=== PATIENT | female | born 2000 | race African-American/Black ===

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

== ENCOUNTER 2020-12-10 09:38 | Inpatient (IN) | payer OTHER ==
[~2020-12-10] VITALS: Ht 168.9 cm; Wt 68.0 kg
[2020-12-10] MEDS ORDERED: SODIUM CHLORIDE 0.9% 1,000 ML IV ONE (10:00)
[2020-12-10 11:53] LABS: BASOPHILS % 0.3 % (0.0-2.0); EOSINOPHILS % 0.1 % (0.0-5.0); HEMATOCRIT. 43.3 % (36.0-48.0); HEMOGLOBIN. 14.6 g/dL (12.0-16.0); LYMPHOCYTES % 20.6 % (20.0-50.0); MEAN CORPUSCULAR HEMOGLOBIN 30.3 pg (28.0-32.0); MEAN CORPUSCULAR VOLUME 90.3 fL (81.0-99.0); MEAN PLATELET VOLUME 7.6 fl (7.4-10.4); MONOCYTES % 4.3 % (2.0-8.0); NEUTROPHILS % 74.7 % (40.0-76.0); PLATELET 304 x1000/uL (130-400); RED CELL DISTRIBUTION WIDTH 12.8 % (11.6-14.6)
[2020-12-10 11:56] LABS: CHLORIDE 107 mEq/L (98-107)
[2020-12-10] MEDS ORDERED: LORAZEPAM 2MG/ML CPJ IV ONE ×3 (12:00→14:15)
[2020-12-10 12:01] LABS: ETHANOL BLOOD < 10 mg/dL
[2020-12-10 12:05] LABS: HCG SCREEN NEGATIVE
[2020-12-10 13:47] LABS: OPIATES URINE SCREEN NEGATIVE (NEGATIVE); PHENCYCLIDINE URINE SCREEN NEGATIVE (NEGATIVE)
[2020-12-10 13:48] LABS: *AMPHETAMINES SCREEN URINE NEGATIVE (NEGATIVE); *BARBITURATES SCREEN URINE NEGATIVE (NEGATIVE); CANNABINOID URINE SCREEN NEGATIVE (NEGATIVE)
[2020-12-10 13:50] LABS: *BENZODIAZEPINES SCREEN URINE NEGATIVE (NEGATIVE); *COCAINE SCREEN URINE NEGATIVE (NEGATIVE); METHADONE URINE SCREEN NEGATIVE (NEGATIVE)
[2020-12-10] MEDS ORDERED: OLANZAPINE 5MG TABLET ODT PO ONE (15:45)
[2020-12-10] MEDS ORDERED: OLANZAPINE 5MG TABLET ODT PO NR (16:00)
[2020-12-10] MEDS ORDERED: LABE200T9 PO (16:02)
[2020-12-10] MEDS ORDERED: ATOR10TA69 PO (16:02)
[2020-12-10] MEDS ORDERED: OMEP40CA12 PO (16:02)
[2020-12-10] MEDS ORDERED: ASPI-1497 PO (16:02)
[2020-12-10] MEDS ORDERED: PROPRANOLOL HCL 10MG TABLET PO SCH (18:00)
[2020-12-10 18:04] LABS: T4 FREE 1.17 ng/dL (0.76-1.46)
[2020-12-10 23:30] VITALS: BP 139/85
[2020-12-11] MEDS ORDERED: MONT10TA21 PO (00:33)
[2020-12-11] MEDS ORDERED: DIPH25CA83 PO (00:33)
[2020-12-11] MEDS ORDERED: LEVO5TAB29 PO (00:33)
[2020-12-11] MEDS ORDERED: TRIA10.82 NS (00:33)
[2020-12-11 00:37] VITALS: BP 139/85
[2020-12-11] MEDS ORDERED: DIPHENHYDRAMINE 25MG CAPSULE PO PRN (01:00)
[2020-12-11] MEDS ORDERED: LORAZEPAM 1MG TABLET PO PRN (01:00)
[2020-12-11 04:00] VITALS: BP 114/75
[2020-12-11 04:53] LABS: CHLORIDE 109 mEq/L (98-107)
[2020-12-11 06:15] LABS: HEMATOCRIT 41.8 % (36.0-48.0); HEMOGLOBIN 14.1 g/dL (12.0-16.0); MEAN CORPUSCULAR HEMOGLOBIN 30.5 pg (28.0-32.0); MEAN CORPUSCULAR VOLUME 90.7 fL (81.0-99.0); PLATELET 298 x1000/uL (130-400); RED BLOOD CELL COUNT 4.61 mill/uL (4.2-5.4)
[2020-12-11 08:00] VITALS: BP 119/74
[2020-12-11] MEDS ORDERED: ASPIRIN 81MG TABLET PO SCH (09:00)
[2020-12-11] MEDS ORDERED: METOPROLOL TARTRATE 50MG TABLET PO SCH (09:00)
[2020-12-11] MEDS ORDERED: NON FORMULARY PATIENT HOME MED XX SCH (09:00)
[2020-12-11] MEDS ORDERED: FLUTICASONE PROPIONATE 50MCG/SPRAY BOTTLE BOTHNSTRLS SCH (09:00)
[2020-12-11 12:00] VITALS: BP 117/64
[2020-12-11 16:00] VITALS: BP 124/66
[2020-12-11 16:59] VITALS: BP 124/66
[2020-12-11] MEDS ORDERED: MONTELUKAST SODIUM 10MG TABLET PO SCH (21:00)
== END 2020-12-11 18:00 | disposition home or self-care (01) | DRG 199 ==
LOC: ER 09:38 → EDBEDREQ 15:06 → MICUSO 15:48 → EDBEDREQ 15:55 → 7EST 20:52
PROVIDERS: ADMIT Internal Medicine; ATTEND Internal Medicine
DX: I16.0 Hypertensive urgency (principal); F41.0 Panic disorder [episodic paroxysmal anxiety]; I49.8 Other specified cardiac arrhythmias; R00.0 Tachycardia, unspecified; Z59.0 Homelessness; Z91.010 Allergy to peanuts
CPT/HCPCS: 36415; 71045; 80048; 80053; 80305; 80320; 83880; 84439; 84443; 84480; 84484; 84703; 85025; 85027; 93005; 93306; 99291; J2060; J7030; G0480